=== PATIENT | female | born 1995 | race Two or more races ===

== ENCOUNTER 2016-08-28 00:04 | Emergency (ER) | payer MEDICAID ==
[~2016-08-28] VITALS: Ht 152.4 cm; Wt 90.0 kg
[2016-08-28 01:04] LABS: Urine Bilirubin Negative (Negative); Urine Blood Negative /uL (Negative); Urine Color Yellow (Yellow); Urine Glucose Normal (Normal); Urine Ketone Negative (Negative); Urine Mucus FEW (None Seen); Urine Nitrite Negative (Negative); Urine RBC 7 /hpf (0 - 4); Urine Squamous Epithelial Cell FEW /hpf (<5); Urine Urobilinogen Normal (Negative); Urine pH 5.5 (5.0-8.0)
[2016-08-28 01:21] LABS: Basophils # (auto) 0 uL; Basophils % (auto) 0.5 % (0.0-2.0); Eosinophils # (auto) 0.1 uL; Eosinophils % (auto) 0.6 % (0.0-7.0); Hematocrit 41.3 % (36.0-46.0); Hemoglobin 13.9 g/dL (12.2-16.2); Lymphocytes # (auto) 2.3 uL; Lymphocytes % (auto) 24.2 % (10.0-50.0); Mean Corpuscular Hemoglobin 31.1 pg (28.0-32.0); Mean Corpuscular Hgb Conc. 33.8 g/dL (32.0-36.0); Mean Corpuscular Volume 92.2 fL (80.0-100.0); Mean Platelet Volume 8.2 fL (7.4-10.4); Monocytes # (auto) 0.7 uL; Monocytes % (auto) 7.5 % (0.0-12.0); Neutrophils # (auto) 6.5 uL; Neutrophils % (auto) 67.2 % (37.0-80.0); Platelet Count (auto) 288 10^3/uL (140-450); Red Cell Distribution Width 13.4 % (11.6-16.0); White Blood Cell 9.6 10^3/uL (4.4-10.8)
[2016-08-28 01:35] LABS: INR 0.92 (0.9-1.15); Partial Thromboplastin Time 29.2 sec (22.64-33.71)
[2016-08-28 01:39] LABS: Albumin 3.6 g/dL (3.4-5.0); Calcium 8.9 mg/dL (8.5-10.1); Potassium 3.7 mmol/L (3.5-5.1)
[2016-08-28 01:42] LABS: Bilirubin, Total 0.3 mg/dL (0.2-1.0); Total Protein 8.1 g/dL (6.4-8.2)
[2016-08-28 05:26] VITALS: BP 114/76
== END 2016-08-28 05:28 | disposition home or self-care (01) ==
LOC: ER 00:08
DX: N39.0 Urinary tract infection, site not specified (principal); R11.0 Nausea
CPT/HCPCS: 36415; 74176; 80053; 81001; 81025; 82150; 83690; 85025; 85610; 85730

== ENCOUNTER 2017-03-18 00:33 | Emergency (ER) | payer MEDICAID ==
[~2017-03-18] VITALS: Ht 154.9 cm; Wt 90.7 kg
[2017-03-18 00:40] VITALS: BP 121/60
[2017-03-18] MEDS ORDERED: FLUORESCEIN SOD 1 MG TEST STRIP ONE (01:59)
[2017-03-18] MEDS ORDERED: FLUORESCEIN SOD 1 MG TEST STRIP LEFTEYE ONE (02:15)
[2017-03-18] MEDS ORDERED: KETOROLAC TROMETH 60MG/2ML VIAL IM ONE (02:30)
== END 2017-03-18 03:30 | disposition home or self-care (01) ==
LOC: ER 00:33
DX: H57.12 Ocular pain, left eye (principal)
CPT/HCPCS: 96372; 99283; J1885